=== PATIENT | female | born 1990 | race African-American/Black ===

== ENCOUNTER 2020-08-19 15:29 | Outpatient (CLI) | payer OTHER, SELFPAY ==
--- NOTE | ~2020-08-19 | US_ITS ---
US OB <= 14 weeks fetus DATE: 08/19/2020 16:04 INDICATION: Gestational age determination TECHNIQUE: Real-time imaging and Doppler analysis COMPARISON: None FINDINGS: The uterus measures 11.4 centers height, 7.1 cm AP and 7.9 cm transverse dimension. Live snow intrauterine gestation, with normally shaped gestational sac, normal surrounding hyper echoic decidual reaction. heart rate of 178 bpm. Gestational sac size: 4.42 cm consistent with 10 weeks 1 day estimated gestational age. [place]-rump length 3.27 cm, consistent with 10 weeks 1 day +/- 5 days; ASHANTI by ultrasound is 03/16/2021 . Left ovary measures 3.0 x 2.6 x 2.3 cm and contains a 1.6 cm cyst. The right ovary is not visualized. No pelvic free fluid collection. IMPRESSION: Estimated gestational age 10 weeks 1 day +/- 5 days; ASHANTI: 03/16/2021 Reviewed, dictated and finalized at [facility]. Reviewed, dictated and finalized at location [facility].
== END 2020-08-19 15:30 | disposition home or self-care (01) ==
LOC: ANHIMG 15:32
PROVIDERS: Visit Provider Obstetrics & Gynecology
DX: Z34.91 Encounter for supervision of normal pregnancy, unspecified, first trimester (principal); Z3A.10 10 weeks gestation of pregnancy
CPT/HCPCS: 76801

== ENCOUNTER 2020-10-14 11:23 | Outpatient (CLI) | payer OTHER, SELFPAY ==
--- NOTE | ~2020-10-14 | US_ITS ---
US OB limited 10/14/2020 11:49 Indication: Absent heart tones. Procedure: High-resolution Limited obstetrical ultrasound Comparison: 08/19/2020 Findings: There is a single living intrauterine in vertex presentation. heart rate is 150 BPM. Placenta is fundal/posterior. Amniotic fluid is subjectively normal. Impression: 1: Single living intrauterine in vertex presentation with heart rate of 150 BPM. Reviewed, dictated and finalized at location [facility]. Impression: 1: Single living intrauterine in vertex presentation with heart rate of 150 BPM.
== END 2020-10-14 11:24 | disposition home or self-care (01) ==
PROVIDERS: PCP Obstetrics & Gynecology; Visit Provider Obstetrics & Gynecology
DX: O36.8392 Maternal care for abnormalities of the fetal heart rate or rhythm, unspecified trimester, fetus 2 (principal); Z3A.14 14 weeks gestation of pregnancy
CPT/HCPCS: 76815

== ENCOUNTER 2020-11-06 16:33 | Outpatient (CLI) | payer OTHER, SELFPAY ==
--- NOTE | ~2020-11-06 | US_ITS ---
US OB follow up DATE: 11/06/2020 17:13 INDICATION: supervision TECHNIQUE: Real-time imaging and Doppler analysis COMPARISON: 10/14/2020 Limited obstetrical ultrasound FINDINGS: Live snow intrauterine gestation, vertex presentation, longitudinal lie. Posterior placenta, lower margin 8.1 cm above the internal os. Normal amniotic fluid index measuring 15.2 (5th percentile DORI: 9.5 cm; 95th percentile: 21.4 cm) Biparietal diameter 5.07 cm; 21 weeks 3 days Head circumference 19.65 cm; 21 weeks 6 days Abdominal circumference 17.45 cm; 22 weeks 3 days Femur length 3.72 cm; 21 weeks 6 days Composite age by Hadlock formula is 21 weeks 6 days +/- 1 week 4 day; ASHANTI 03/13/2021 Estimated weight is 473.9 +/- 71.1 g. Head circumference/abdominal circumference 1.13, within normal range of 1.0, 671.23 Femur length/abdominal circumference 21.30, within normal range of 20.0-24.0 Femur length/head circumference 18.92, within normal range of 18.04, 120.21 IMPRESSION: Composite age by Hadlock formula is 21 weeks 6 days +/- 1 week 4 day; ASHANTI 03/13/2021 Reviewed, dictated and finalized at [facility]. Reviewed, dictated and finalized at location [facility]. IMPRESSION: Composite age by Hadlock formula is 21 weeks 6 days +/- 1 week 4 da y; ASHANTI 03/13/2021
== END 2020-11-06 16:34 | disposition home or self-care (01) ==
PROVIDERS: PCP Obstetrics & Gynecology; Visit Provider Obstetrics & Gynecology
DX: Z34.90 Encounter for supervision of normal pregnancy, unspecified, unspecified trimester (principal); Z3A.21 21 weeks gestation of pregnancy
CPT/HCPCS: 76816

== ENCOUNTER 2020-11-19 20:40 | Outpatient (RCR) | payer OTHER, SELFPAY ==
--- NOTE | 2020-11-20 02:11 | PC.NURSE ---
Pt presented to ER with toothache. 23 weeks gestation. Pt to OB per ER staff to check cramping. Pt states she went to ER for toothache. Pt states mild cramps on arrival. Monitor shows no contractions and pt FHT appropriate for gestational age. Dr. Blackwood notified [id number] and pt back to ED for toothache evaluation at 2119.
== END 2020-11-19 21:10 | disposition home or self-care (01) ==
LOC: ANHOBOP 20:40
PROVIDERS: Visit Provider Obstetrics & Gynecology
DX: O26.899 Other specified pregnancy related conditions, unspecified trimester (principal); R10.9 Unspecified abdominal pain; K08.89 Other specified disorders of teeth and supporting structures; Z3A.00 Weeks of gestation of pregnancy not specified
CPT/HCPCS: 99199

== ENCOUNTER 2020-11-19 21:15 | Emergency (ER) | payer OTHER, SELFPAY ==
[2020-11-19 21:19] VITALS: BP 133/66; PULSE 94; RESP 18; TEMP 36.3; O2SAT 100
--- NOTE | 2020-11-19 21:32 | ED.DENTAL ---
HPI - Dental/Oral General Chief complaint: Dental/Oral Stated complaint: top and bottom left sided tooth pain Time Seen by Provider: 11/19/20 21:26 Source: patient Mode of arrival: ambulatory Limitations: no limitations History of Present Illness HPI Narrative: 30-year-old here with complaints of dental pain for past 1 week. She states that she is scheduled to see her dentist tomorrow however the pain is intense. She states that earlier this week she was put on antibiotic and [place] which is not helping. She denies any fever or chills. MD Complaint: tooth pain Location: Tooth # (15) Onset (ago): week(s) (1) Severity: moderate Relieving factors: nothing Exacerbating factors: nothing Context: other (Fractured) Treatment prior to arrival: oral analgesic Related Data Allergies Allergy/AdvReac Type Severity Reaction Status Date / Time tramadol Allergy Unknown Other Verified 11/19/20 21:27 Review of Systems Review of Systems: All systems reviewed & are unremarkable except as noted in HPI and below Constitutional: Constitutional: Reports no additional constitutional complaints Eyes: Eyes: Reports no additional eye complaints ENT: Reports as per HPI Cardiovascular: Cardiovascular: Reports no additional cardiovascular complaints Respiratory: Respiratory: Reports no additional respiratory complaints Musculoskeletal: Musculoskeletal: Reports no additional musculoskeletal complaints Exam Narrative: GENERAL: Well-appearing, well-nourished, and in no acute distress. HEAD: Normocephalic, atraumatic. EYES: PERRLA and EOMI. ENT: Nares clear, no rhinorrhea or epistaxis. Mucous membranes moist. Fractured tooth #15 gums appear normal no evidence of infection. NECK: Supple. CHEST: Clear to auscultation. No respiratory distress. HEART: Regular rate and rhythm. No murmur heard. Normal peripheral pulses. EXTREMITIES: Normal range of motion. No edema. SKIN: Warm, dry, no rash. NEURO: No focal deficits. Alert and oriented x3. PSYCH: Normal mood and affect. Course Course Emergency Course: Advised patient to continue present medication., Follow-up with the dentist tomorrow as scheduled. Vital Signs Vital signs: Vital Signs Temperature 36.3 C L 11/19/20 21:19 Pulse Rate 94 11/19/20 21:19 Respiratory Rate 18 11/19/20 21:19 Blood Pressure 133/66 11/19/20 21:19 Pulse Oximetry 100 11/19/20 21:19 Temperature 36.6 C 11/19/20 21:48 Pulse Rate 88 11/19/20 21:48 Respiratory Rate 18 11/19/20 21:48 Blood Pressure 130/70 11/19/20 21:48 Pulse Oximetry 100 11/19/20 21:48 Discharge Plan Discharge Clinical Impression: Toothache Patient Disposition: Home, Self-Care Condition: Stable Instructions: Antibiotic Form, Toothache (ED) Additional Instructions: Continue home medication. Follow-up with your dentist. Follow-up/Referrals: UNKNOWN,DOCTOR [Primary Care Provider] - Stand Alone Forms: Work/School Release IP Time of Disposition: 21:36
[2020-11-19 21:48] VITALS: BP 130/70; PULSE 88; RESP 18; TEMP 36.6; O2SAT 100
== END 2020-11-19 21:51 | disposition home or self-care (01) ==
LOC: ANHED 21:58
PROVIDERS: Emergency Provider Family Medicine
DX: K08.89 Other specified disorders of teeth and supporting structures (principal)
CPT/HCPCS: 99281

== ENCOUNTER 2021-01-18 15:37 | Outpatient (CLI) | payer OTHER, SELFPAY ==
--- NOTE | ~2021-01-18 | US_ITS ---
EXAMINATION: US OB follow up DATE: 01/18/2021 16:18 INDICATION: Routine care during third trimester TECHNIQUE: Real-time ultrasound of the pelvis was performed. The interpreting radiologist was not pre sent for the study. COMPARISON: 11/06/2020 FINDINGS: There is a single living fetus in variable presentation. The placenta is posterior. c ardiac activity and movement are noted. heart rate is 136 beats per minute (bpm). The amn iotic fluid index is 18.1 cm which is normal. The following biometric data were obtained: Biparietal diameter (BPD): 8.2 cm; head circumference (HC): 29.5 cm; abdominal circumference (AC): 29 .2 cm; femur length (FL): 6.4 cm. These measurements are concordant. Estimated weight is 2124 g +/- 318 g, which correlates with the 79th percentile when 03/16/2021 is used as estimated date of delivery. As single measurements, these parameters are each equal to the following estimated gestational ages w ith ranges of +/- 2 standard deviations: BPD: 33 weeks 1 days ( 30 weeks 0 days - 36 weeks 1 days). HC: 32 weeks 5 days ( 29 weeks 5 days - 35 weeks 5 days). AC: 33 weeks 2 days ( 30 weeks 2 days - 36 weeks 2 days). FL: 33 weeks 0 days ( 30 weeks 1 days - 36 weeks 0 days). estimated gestational age based solely on measurements from this exam is 33 weeks 0 days +/- 2 weeks 2 days. IMPRESSION: 1. Single living fetus in variable presentation. 2. Normal amniotic fluid index. 3. Estimated weight is 2124 g +/- 318 g, which correlates with the 79th percentile when 021 is used as estimated date of delivery. Reviewed, dictated and finalized at location [facility]. IMPRESSION: 1. Single living fetus in variable presentation. 2. Normal amniotic fluid index. 3. Estimated weight is 2124 g +/- 318 g, which correlates with the 79th p ercentile when 03/16/2021 is used as estimated date of delivery.
== END 2021-01-18 15:38 | disposition home or self-care (01) ==
LOC: ANHIMG 15:39
PROVIDERS: Visit Provider Obstetrics & Gynecology
DX: Z34.83 Encounter for supervision of other normal pregnancy, third trimester (principal)
CPT/HCPCS: 76816

== ENCOUNTER 2021-03-01 19:03 | Observation (INO) | payer OTHER, SELFPAY ==
[2021-03-01 19:24] VITALS: TEMP 36.6
[2021-03-01 19:25] VITALS: BMI 42.2
--- NOTE | 2021-03-01 22:18 | OBADM ---
This patient, Kwadwo Smith, admitted to the OB room Labor/Delivery/Recovery 120 for observation. Patient/family oriented to hospital policies and general routines including ID bracelet, bed and alarms, visiting hours, pain management, procedures, bathroom and other care routines, personal items, smoking policy, room service/diet, and visiting hours. Patient/Family are encouraged to report perceived risks to care and to ask questions if they do not understand what they are told or what they should do.
--- NOTE | 2021-03-03 18:25 | PM.OBTRLD ---
OB - Triage/Final Diagnosis Visit Information Reason for evaluation: threatened labor Comments/Additional reasons for admission: I have assessed the risk for this patient, Kwadwo Smith, and determined that she would benefit from observation care.
== END 2021-03-01 21:24 | disposition home or self-care (01) ==
PROVIDERS: Admitting Provider Student in an Organized Health Care Education/Training Program; PCP Internal Medicine Infectious Disease; Visit Provider Student in an Organized Health Care Education/Training Program
DX: O47.1 False labor at or after 37 completed weeks of gestation (principal); Z3A.37 37 weeks gestation of pregnancy
CPT/HCPCS: G0378; G0379

== ENCOUNTER 2025-02-09 01:13 | Emergency (ER) | payer OTHER, SELFPAY ==
--- NOTE | ~2025-02-09 | XR_ITS ---
Examination: XR chest 1V portable Clinical History: CHEST PAIN Comparison: None Technique: Portable AP Findings: Heart size upper limit of normal. Lungs clear. No acute bony abnormality. IMPRESSION: 1. No acute cardiopulmonary findings given portable technique. Reviewed, dictated and finalized at location R. SPECIALIST
--- NOTE | 2025-02-09 01:16 | ECG_ITS ---
Test Date: 2025-02-09 01:20:45 Measurements Intervals [place] Rate: 85 P: 59 TN: 140 QRS: 8 QRSD: 87 T: 2 QT: 373 QTc: 444 Interpretive Statements SINUS RHYTHM POSSIBLE ANTERIOR MYOCARDIAL INFARCTION , PROBABLY OLD [30 ms Q WAVE IN V3/V4, OR R < 0.2 mV IN V4] No previous ECG available for comparison Electronically Signed On 02-09-2025 06:18:30 [employer] by Helena Francis M.D.
--- NOTE | 2025-02-09 01:18 | ECG_ITS ---
Test Date: 2025-02-09 04:43:42 Measurements Intervals [place] Rate: 87 P: 57 HI: 143 QRS: 22 QRSD: 84 T: 40 QT: 365 QTc: 439 Interpretive Statements SINUS RHYTHM NONSPECIFIC T-WAVE ABNORMALITY Compared to ECG 02/09/2025 01:20:45 T-wave abnormality now present Myocardial infarct finding no longer present Electronically Signed On 02-09-2025 06:20:30 [employer]OCI[employer]MIST by Helena Francis M.D.
[2025-02-09 01:19] VITALS: BP 146/82; PULSE 89; RESP 20; O2SAT 100
[2025-02-09] MEDS: ASPIRIN 81 MG CHEWABLE TABLET 324 MG PO (01:26)
[2025-02-09 01:36] LABS: Hematocrit 30.9 % (37.0-47.0); Hemoglobin 10.1 g/dL (12.0-15.0); Immature Granulocyte Percent A 0.3 % (0-0.5); Immature Platelet Fraction Pct 3.2 % (0.9-11.2); Lymphocytes Absolute Auto 2.61 K/mm3 (0.9-3.2); Mean Corpuscular HGB Conc 32.7 g/dl (32-36); Mean Corpuscular Hemoglobin 22.1 pg (26-34); Mean Corpuscular Volume 67.5 fl (80-100); Nucleated Red Blood Cells Absolute Auto 0.000 K/mm3 (0.0-0.012); Nucleated Red Blood Cells Perc 0.0 % (0.0-0.2); Platelet Count Result 334 k/mm3 (150-375); Red Blood Count 4.58 M/mm3 (4.2-5.4); White Blood Count 10.7 K/mm3 (4.5-10.0)
[2025-02-09 01:46] LABS: INR 0.9; Prothrombin Time 12.8 Seconds (11.1-14.7)
[2025-02-09 01:47] LABS: Partial Thromboplastin Time 23.6 Seconds (22.3-36.8)
[2025-02-09 01:50] LABS: Alanine Aminotransferase 22 U/L (6-35); Albumin Level 4.2 g/dL (3.5-5.1); Alkaline Phosphatase 99 U/L (38-126); Anion Gap 8 mmol/L (4-12); Aspartate Amino Transferase 24 U/L (14-36); Bilirubin,Total 0.3 mg/dL (0.2-1.3); Blood Urea Nitrogen 9 mg/dL (7-17); Calcium 9.3 mg/dL (8.4-10.2); Carbon Dioxide 24 mmol/L (22-30); Chloride 103 mmol/L (98-107); Estimated CRCL calculation 127 ml/min; Estimated Glomerular Filt Rate > 60; Glucose 155 mg/dL (65-110); Lipase 115 U/L (23-300); Potassium 3.8 mmol/L (3.4-5.0); Sodium 135 mmol/L (137-145); Total Protein 8.0 g/dL (6.3-8.2)
[2025-02-09 01:59] LABS: Hypochromasia 1+; Microcytosis 1+ (NORMAL); Polychromasia Occasional; Schistocytes None Seen
[2025-02-09 02:01] LABS: NT Pro B Type Natriuretic Pept < 20 pg/mL (19.9-100); Troponin I < 0.012 ng/mL (0.000-0.034)
--- NOTE | 2025-02-09 02:25 | ED.CHESTPAIN ---
HPI - Chest Pain General Chief Complaint: Chest Pain Stated Complaint: CP Time Seen by Provider: 02/09/25 01:57 History of Present Illness HPI narrative: 34-year-old female with no pertinent past medical history presenting with left-sided arm and chest pain. She states the symptoms started around 10:00 p.m. tonight and has pain in her left chest and left arm. She states she has had episodes like this in the past and been to another hospital where they did a cardiac workup and found no problems. Patient states she took Tylenol at home and did have improvement in symptoms but they reoccurred. Denies any traumatic injuries. No nausea, vomiting, difficulty breathing, neurological complaints such as weakness or paresthesias. Ambulatory without any difficulty. Awake alert answering all questions appropriately. Related Data Home Medications ?Medication ?Instructions ?Recorded ?Confirmed ?Last Taken ?Type acyclovir 800 mg tablet 800 mg PO DAILY 02/26/21 02/26/21 Unknown History ferrous sulfate 325 mg (65 mg 325 mg PO DAILY 02/26/21 02/26/21 Unknown History iron) tablet (Iron (ferrous sulfate)) vit no.95-ferrous 1 tablet PO DAILY 02/26/21 02/26/21 Unknown History fumarate 28 mg-folic acid 800 mcg tablet () Allergies Allergy/AdvReac Type Severity Reaction Status Date / Time tramadol Allergy Unknown Itching Verified 02/09/25 01:19 iodine Allergy Itching Verified 02/09/25 01:19 latex Allergy Itching Verified 02/09/25 01:19 Review of Systems Review of Systems: As reviewed above in [facility] Family History Family History Other No pertinent family history Social History Social History Substance use: never Spiritual care concerns: No Exam Narrative: GENERAL: [Well-appearing, well-nourished, and in no acute distress.] HEAD: [Normocephalic, atraumatic.] EYES: [PERRLA and EOMI.] ENT: Nares clear, no rhinorrhea or epistaxis. Mucous membranes moist. NECK: Supple. CHEST: [Clear to auscultation. No respiratory distress.] HEART: [Regular rate and rhythm]. No murmur heard. [Normal peripheral pulses.] ABDOMEN: [Soft, nondistended], [nontender], [No rigidity or guarding] EXTREMITIES: Normal range of motion. [No edema.] SKIN: Warm, dry, no rash. NEURO: [No focal deficits]. Alert and oriented [x3.] PSYCH: [Normal mood and affect.] Course Vital Signs Vital signs: Vital Signs Pulse Rate 89 02/09/25 01:19 Respiratory Rate 20 02/09/25 01:19 Blood Pressure 146/82 H 02/09/25 01:19 Pulse Oximetry 100 02/09/25 01:19 Oxygen Delivery Room Air 02/09/25 01:19 Pulse Rate 89 02/09/25 05:54 Respiratory Rate 15 02/09/25 05:54 Blood Pressure 124/72 02/09/25 05:54 Pulse Oximetry 99 02/09/25 05:54 Oxygen Delivery Room Air 02/09/25 01:19 MDM - Chest Pain MDM Narrative Medical decision making narrative: 34-year-old female with no pertinent past medical history presenting with left-sided arm and chest pain. She states the symptoms started around 10:00 p.m. tonight and has pain in her left chest and left arm. She states she has had episodes like this in the past and been to another hospital where they did a cardiac workup and found no problems. Patient states she took Tylenol at home and did have improvement in symptoms but they reoccurred. Denies any traumatic injuries. No nausea, vomiting, difficulty breathing, neurological complaints such as weakness or paresthesias. Ambulatory without any difficulty. Awake alert answering all questions appropriately. Patient is morbidly obese but overall has a benign examination and well-appearing. She is not any acute distress and resting comfortably on the stretcher. She has no tachycardia, fever, hypoxemia, tachypnea or significant blood pressure concerns. Strong symmetric pulses in clear breath sounds throughout. Soft nontender nondistended abdomen. Ultimately given lack of risk factors and physical exam findings most likely benign musculoskeletal etiology to her symptoms versus gastritis and GERD. Low suspicion ACS or thromboembolic disease. Dimer used to rule this out, chest x-ray EKG and troponins ordered as well as laboratory studies and LFTs. Patient given Toradol Zofran and re-evaluated. Placed on quality assurance monitor. EKG nonischemic. Patient has been resting comfortably throughout the evening without any pain after medications. Troponins are negative, dimer negative, EKG unremarkable. Chest x-ray unremarkable. Safe for discharge with regular primary care provider follow-up at this juncture. Medical Records Data Attestation: I reviewed the patient's medical records. Lab Data Attestation: I reviewed the patient's lab results. 02/09/25 01:27 02/09/25 01:27 Labs: Lab Results 02/09/25 02/09/25 Range/Units 01:27 04:45 WBC 10.7 H (4.5-10.0) K/mm3 RBC 4.58 (4.2-5.4) M/mm3 Hgb 10.1 L (12.0-15.0) g/dL Hct 30.9 L (37.0-47.0) % MCV 67.5 L (80-100) fl MCH 22.1 L (26-34) pg MCHC 32.7 (32-36) g/dl RDW 19.9 H (11.5-14.5) % Plt Count 334 (150-375) k/mm3 MPV 10.4 (7.4-10.4) fl Immature Gran % (Auto) 0.3 (0-0.5) % Neut % (Auto) 66.4 (45.5-73.1) % Lymph % (Auto) 24.3 (18.3-44.2) % [place] % (Auto) 7.3 (2.6-8.5) % Eos % (Auto) 1.3 (0-4.4) % Baso % (Auto) 0.4 (0.2-1.2) % Lymph # (Auto) 2.61 (0.9-3.2) K/mm3 [place] # (Auto) 0.8 H (0.1-0.6) K/mm3 Eos # (Auto) 0.1 (0-0.3) K/mm3 Baso # (Auto) 0.0 (0.0-0.1) K/mm3 Abs Immat Gran (auto) 0.03 (0.00-0.031) K/mm3 Absolute Neuts (auto) 7.1 H (1.3-6.7) K/mm3 Absolute Nucleated RBC 0.000 (0.0-0.012) K/mm3 Band Neutrophils % Not Reportable Nucleated RBC % 0.0 (0.0-0.2) % Platelet Estimate Slightly increased (Adequate) % Immature Plt Fraction 3.2 (0.9-11.2) % Polychromasia Occasional Hypochromasia 1+ Microcytosis 1+ (NORMAL) Schistocytes None seen PT 12.8 (11.1-14.7) Seconds INR 0.9 APTT 23.6 (22.3-36.8) Seconds D-Dimer 0.40 (<0.48) ug/mL Sodium 135 L (137-145) mmol/L Potassium 3.8 (3.4-5.0) mmol/L Chloride 103 (98-107) mmol/L Carbon Dioxide 24 (22-30) mmol/L Anion Gap 8 (4-12) mmol/L BUN 9 (7-17) mg/dL Creatinine 0.67 L (0.7-1.0) mg/dL Estim Creat Clear Calc 127 ml/min Estimated GFR > 60 (59 - ) Glucose 155 H (65-110) mg/dL Calcium 9.3 (8.4-10.2) mg/dL Total Bilirubin 0.3 (0.2-1.3) mg/dL AST 24 (14-36) U/L ALT 22 (6-35) U/L Alkaline Phosphatase 99 (38-126) U/L Troponin I < 0.012 < 0.012 (0.000-0.034) ng/mL NT-Pro-B Natriuret Pep < 20 (19.9-100) pg/mL Total Protein 8.0 (6.3-8.2) g/dL Albumin 4.2 (3.5-5.1) g/dL Lipase 115 (23-300) U/L Imaging Data Attestation: I personally reviewed and interpreted this imaging study as follows: My impression: No acute pneumonia pneumothorax or obvious consolidation. Discharge Plan Discharge Clinical Impression: Atypical chest pain Patient Disposition: Home Condition: Stable Instructions: Antibiotic Form, Chest Pain (ED), Chest Wall Pain (ED) Additional Instructions: Laboratory studies are all normal. Chest x-ray and EKG are normal. No signs of any urgent or emergent concerns but we are not sure what caused her symptoms today. Follow-up with her primary care provider and return with any worsening, new, or emergent concerns at any time. Patient Language: [place] Prescriptions: No Action acyclovir 800 mg Tablet 800 mg PO DAILY ferrous sulfate [Iron (ferrous sulfate)] 325 mg (65 mg iron) Tablet 325 mg PO DAILY PNV no.95-ferrous fumarate-FA [] 28 mg iron- 800 mcg Tablet 1 tablet PO DAILY Follow-up/Referrals: Khadra,Monserrat Courtney [Primary Care Provider] Time of Disposition: 05:42
[2025-02-09] MEDS: ONDANSETRON INJ 4 MG/2 ML VIAL IV PUSH (02:28)
[2025-02-09] MEDS: KETOROLAC 15 MG/ML VIAL (*BKC) IV PUSH (02:29)
[2025-02-09 05:29] LABS: Troponin I < 0.012 ng/mL (0.000-0.034)
[2025-02-09 05:54] VITALS: BP 124/72; PULSE 89; RESP 15; O2SAT 99
[2025-02-10 11:50] LABS: BEDSIDEPREGUCG Negative (Negative)
== END 2025-02-09 05:55 | disposition home or self-care (01) ==
PROVIDERS: Emergency Provider Student in an Organized Health Care Education/Training Program; PCP Internal Medicine Infectious Disease
DX: R07.89 Other chest pain (principal); R94.31 Abnormal electrocardiogram [ECG] [EKG]
CPT/HCPCS: 36415; 71045; 80053; 81025; 83690; 83880; 84484; 85025; 85055; 85380; 85610; 85730; 93005; 96374; 96375; 99284; A9270; J1885; J2405